=== PATIENT | female | born 1995 | race Caucasian/White ===

== ENCOUNTER 2016-11-04 12:03 | Emergency (ER) | payer BC, OTHER ==
[~2016-11-04] VITALS: Ht 162.6 cm; Wt 55.7 kg
[~2016-11-04 12:03] MED LIST: ESCI1TAB6 PO; LEVO1IUD PV; LORA-741 PO; TOPI1CAP3 PO
[2016-11-04 12:05] VITALS: Ht 162.6 cm; Wt 55.7 kg
[2016-11-04 13:09] LABS: HEMATOCRIT 40.4 % (37-47); MEAN CELL VOLUME 89.8 fL (80-100); MEAN CORPUSCULAR HEMOGLOBIN 30.7 pg (25-34); MEAN CORPUSCULAR HGB CONC 34.2 g/dl (32-36); MEAN PLATELET VOLUME 10.7 fL (7.4-10.4); PLATELET COUNT 213 K/uL (130-400); WHITE BLOOD COUNT 5.16 K/uL (4.8-10.8)
[2016-11-04 13:12] LABS: URINE APPEARANCE CLOUDY (CLEAR); URINE BILIRUBIN NEG (NEG); URINE COLOR YELLOW; URINE EPITHELIAL CELL AUTO >30 /lpf (0-5); URINE NITRITE NEG (NEG); URINE SPECIFIC GRAVITY 1.016 (1.000-1.030); UROBILINOGEN NEG (NEG); ZZUR CULT IF INDIC CLEAN CATCH YES
[2016-11-04 13:15] LABS: BUN/CREATININE RATIO 16.7 (10-20); CALCIUM 8.7 mg/dl (8.5-10.1); CREATININE 0.63 mg/dl (0.60-1.20); POTASSIUM 3.5 mmol/L (3.5-5.1)
[2016-11-04] MEDS ORDERED: SODIUM CHLORIDE 0.9% 1000ML 1,000 ML IV STA (13:16)
[2016-11-04] MEDS ORDERED: MoRPHine SULFATE 4 MG/ML 1 ML CARP\\VIAL IV STA (13:16)
[2016-11-04] MEDS ORDERED: ONDANSETRON INJ 2 MG/ML 2 ML VIAL IV STA (13:16)
[2016-11-04] MEDS ORDERED: KETOROLAC TROMETHAMINE 30 MG/ML VIAL IV STA (13:16)
[2016-11-04 13:18] LABS: ALB/GLOB RATIO 1.3 (0.9-2)
[2016-11-04 13:21] LABS: MANUAL MICROSCOPIC REQUIRED? NO; REVIEW REQ? NO
[2016-11-04] MEDS ORDERED: LEVOTAB6 PO (13:28)
[2016-11-04] MEDS ORDERED: ACET-749 PO (13:28)
[2016-11-04 13:37] LABS: BASO % 0.4 %; BASO ABS # 0.02 K/uL (0-0.2); COMPLETE YES; IG% 0.2 %; LYMPH % 31.4 %; LYMPH ABS # 1.62 K/uL (1.2-3.4); MONO % 6.4 %; NEUT % 60.6 %
[2016-11-04 13:44] LABS: PREG INTERNAL NEGATIVE QC NEG CLEAR BACKGROUND; PREG INTERNAL POSITIVE QC POS CONTROL LINE
--- NOTE | 2016-11-04 14:51 | DIAGNOSTIC IMAGING REPORT ---
ULTRASOUND OF THE PELVIS CLINICAL HISTORY: Pelvic pain. COMPARISON STUDY: Pelvic CT dated 05/21/2016. TECHNIQUE: Real-time, grayscale, and color flow sonography of the pelvis is performed both transabdominally and endovaginally. Images are reviewed in the transverse and longitudinal planes. FINDINGS: Uterus: The uterus is normal in size and echotexture, measuring 6.7 x 2.6 x 3.7 cm. Endometrium: The endometrium is normal in appearance, and the endometrial stripe is normal in thickness measuring up to 0.3 cm. Ovaries: The ovaries are normal in size and morphology. The right ovary measures 2.7 x 1.7 x 2.1 cm and the left ovary measures 2.6 x 1.5 x 2.0 cm. Normal Doppler waveforms are shown within both ovaries. Pelvis: There is trace free fluid in the cul-de-sac. No concerning adnexal lesion is seen. IMPRESSION: 1. No acute sonographic abnormalities identified in the pelvis. 2. There is trace and likely physiologic free fluid in the cul-de-sac. Electronically signed by: Cameron Madrigal M.D. 11/04/2016 2:50 PM Dictated Date/Time: 11/04/2016 2:49 PM
[2016-11-04] MEDS ORDERED: HYDR-5688 PO (15:05)
[2016-11-04] MEDS ORDERED: ONDA4TAB10 SL (15:07)
--- NOTE | 2016-11-04 15:07 | EMERGENCY ROOM VISIT NOTE ---
History First contact with patient: 13:01 Chief Complaint: ABDOMINAL PAIN Stated Complaint: SEVERE LWR STOMACH PAIN Nursing Triage Summary: pt has bilateral side abd pain lower quads for past 4 days nausea denies v/d pt has hx of ovarian cysts, reports "feels like that" pt reports pain is worse with movement History of Present Illness Patient is a 21-year-old white female who presents to emergency department for evaluation of bilateral lower pelvic pain 4 days. She reports a dull, aching, cramping pain that occasionally becomes sharp and stabbing. She has a history of ovarian cysts, and states that this feels slightly similar. She called her SENIOR BUSINESS DEVELOPMENT MANAGER who called her in a prescription for Tylenol #3. She has been taking this for the last 2 days with minimal relief. She also tried regular Tylenol and heat. She states that her prior ovarian cyst last summer was right-sided. She presently rates her discomfort a 7/10. She is nauseous but has not vomited. She denies any diarrhea or urinary symptoms. She is sexually active. She denies any abnormal vaginal bleeding or vaginal discharge. She previous had an IUD which was removed about 4 months ago. She has been on continuous control since. She changed from generic to brand name about 3 weeks ago. She states the pain is primarily in the anterior part of her abdomen, she does not feel any radiating to her back or flanks or into her thighs or her groin. Review of Systems Review of systems as per HPI. All other systems reviewed were negative. 10 systems reviewed. Past Medical/Surgical History Medical Problems: (1) Back pain (2) Infectious Mononucleosis (3) Ovarian cyst (4) Pharyngitis (5) Postoperative pain (6) Pruritic erythematous rash (7) Pruritic erythematous rash (8) Right lower quadrant abdominal pain (9) Sore throat (10) Urinary tract infection (11) Vasovagal syncope Surgical Problems: (1) Hx of tonsillectomy (2) No significant past surgical history Electronic medical records are reviewed and summarized as above/below. See Problem List. Family History Diabetes mellitus FHx: cancer Hypertension Social History Smoking Status: Never Smoker Alcohol Use: none Marital Status: single Housing Status: lives with family Occupation Status: employed Current/Historical Medications Scheduled Escitalopram Oxalate (Lexapro), 5 MG PO DAILY Levonorgestrel-Ethinyl Estradi (Seasonique), 1 TAB PO DAILY Topiramate (Trokendi Xr), 100 MG PO DAILY Scheduled PRN Acetaminophen/Codeine (Tylenol W/Codeine #3), 1 TAB PO for Pain Hydrocodone/Acetaminophen 5MG/325MG ([place] 5MG/325MG), 1-2 TABLETS PO Q4 PRN for Pain Lorazepam (Ativan), 0.5 MG PO TID PRN for Anxiety Ondasetron Odt (Zofran Odt), 4 MG SL Q4 PRN for Nausea or Vomiting Allergies Coded Allergies: Sulfa Drugs (Verified Allergy, Unknown, hives, 11/04/16) Physical Exam Vital Signs Date Time Temp Pulse Resp B/P Pulse Ox O2 Delivery O2 Flow Rate FiO2 11/04/16 15:34 36.8 65 18 113/64 100 11/04/16 15:07 65 18 113/64 100 11/04/16 12:05 36.8 82 20 117/80 100 Room Air Physical Exam CONSTITUTIONAL: Patient is a well-appearing 21-year-old white female who is awake and alert and in no acute distress. Her mother is at the bedside. EYES: Pupils equal, round, reactive to light and accommodation. EOMs intact without nystagmus. Sclera are anicteric. ENT: Tympanic membranes intact, with normal landmarks. External canals are clear. Oral and nasopharynx are clear. Mucous membranes are moist, no lesions , tongue and gums appear normal. NECK: No bruits auscultated. Supple without lymphadenopathy. No thyromegaly. No meningeal signs. Full active range of motion without discomfort. CARDIOVASCULAR: Regular rate and rhythm, with normal S1 and S2, no murmur or gallop or rub is heard. No carotid bruits auscultated. No JVD. Peripheral pulses easily palpable. RESPIRATORY: Breath sounds equal and clear to auscultation without wheezes, rales, or rhonchi heard. Full and equal chest expansion without accessory muscle use or retractions. ABDOMEN: Bowel sounds are present. Abdomen is soft, nondistended, slightly tender to palpation in the left lower quadrant, without guarding, rebound or rigidity. She has no pain in the right lower quadrant over McBurney's point. No CVA tenderness. INTEGUMENTARY: No lesions or rash, normal skin turgor. LYMPH: No lymphadenopathy. Medical Decision & Procedures ER Provider Diagnostic Interpretation: ULTRASOUND OF THE PELVIS CLINICAL HISTORY: Pelvic pain. COMPARISON STUDY: Pelvic CT dated 05/21/2016. TECHNIQUE: Real-time, grayscale, and color flow sonography of the pelvis is performed both transabdominally and endovaginally. Images are reviewed in the transverse and longitudinal planes. FINDINGS: Uterus: The uterus is normal in size and echotexture, measuring 6.7 x 2.6 x 3.7 cm. Endometrium: The endometrium is normal in appearance, and the endometrial stripe is normal in thickness measuring up to 0.3 cm. Ovaries: The ovaries are normal in size and morphology. The right ovary measures 2.7 x 1.7 x 2.1 cm and the left ovary measures 2.6 x 1.5 x 2.0 cm. Normal Doppler waveforms are shown within both ovaries. Pelvis: There is trace free fluid in the cul-de-sac. No concerning adnexal lesion is seen. IMPRESSION: 1. No acute sonographic abnormalities identified in the pelvis. 2. There is trace and likely physiologic free fluid in the cul-de-sac. Laboratory Results 11/04/16 12:20 Red Blood Count 4.50, Mean Corpuscular Volume 89.8, Mean Corpuscular Hemoglobin 30.7, Mean Corpuscular Hemoglobin Concent 34.2, Mean Platelet Volume 10.7, Neutrophils (%) (Auto) 60.6, Lymphocytes (%) (Auto) 31.4, Monocytes (%) (Auto) 6.4, Eosinophils (%) (Auto) 1.0, Basophils (%) (Auto) 0.4, Neutrophils # (Auto) 3.13, Lymphocytes # (Auto) 1.62, Monocytes # (Auto) 0.33, Eosinophils # (Auto) 0.05, Basophils # (Auto) 0.02 11/04/16 12:20 Test 11/04/16 12:20 White Blood Count 5.16 K/uL (4.8-10.8) Red Blood Count 4.50 M/uL (4.2-5.4) Hemoglobin 13.8 g/dL (12.0-16.0) Hematocrit 40.4 % (37-47) Mean Corpuscular Volume 89.8 fL (80-100) Mean Corpuscular Hemoglobin 30.7 pg (25-34) Mean Corpuscular Hemoglobin Concent 34.2 g/dl (32-36) Platelet Count 213 K/uL (130-400) Mean Platelet Volume 10.7 fL (7.4-10.4) Neutrophils (%) (Auto) 60.6 % Lymphocytes (%) (Auto) 31.4 % Monocytes (%) (Auto) 6.4 % Eosinophils (%) (Auto) 1.0 % Basophils (%) (Auto) 0.4 % Neutrophils # (Auto) 3.13 K/uL (1.4-6.5) Lymphocytes # (Auto) 1.62 K/uL (1.2-3.4) Monocytes # (Auto) 0.33 K/uL (0.11-0.59) Eosinophils # (Auto) 0.05 K/uL (0-0.5) Basophils # (Auto) 0.02 K/uL (0-0.2) RDW Standard Deviation 42.8 fL (36.4-46.3) RDW Coefficient of Variation 13.1 % (11.5-14.5) Immature Granulocyte % (Auto) 0.2 % Immature Granulocyte # (Auto) 0.01 K/uL (0.00-0.02) Urine Color YELLOW Urine Appearance CLOUDY (CLEAR) Urine pH 7.0 (4.5-7.5) Urine Specific [place] 1.016 (1.000-1.030) Urine Protein NEG (NEG) Urine Glucose (UA) NEG (NEG) Urine Ketones NEG (NEG) Urine Occult Blood NEG (NEG) Urine Nitrite NEG (NEG) Urine Bilirubin NEG (NEG) Urine Urobilinogen NEG (NEG) Urine Leukocyte Esterase TRACE (NEG) Urine WBC (Auto) 1-5 /hpf (0-5) Urine RBC (Auto) 0-4 /hpf (0-4) Urine Hyaline Casts (Auto) 1-5 /lpf (0-5) Urine Epithelial Cells (Auto) >30 /lpf (0-5) Urine Bacteria (Auto) 1+ (NEG) Urine Test NEG (NEG) Anion Gap 9.0 mmol/L (3-11) Est Creatinine Clear Calc Drug Dose 121.0 ml/min Estimated GFR () 147.6 Estimated GFR (Non- 127.3 BUN/Creatinine Ratio 16.7 (10-20) Calcium Level 8.7 mg/dl (8.5-10.1) Total Bilirubin 0.5 mg/dl (0.2-1) Aspartate Amino Transf (AST/SGOT) 13 U/L (15-37) Alanine Aminotransferase (ALT/SGPT) 15 U/L (12-78) Alkaline Phosphatase 48 U/L (45-117) Total Protein 7.6 gm/dl (6.4-8.2) Albumin 4.3 gm/dl (3.4-5.0) Globulin 3.3 gm/dl (2.5-4.0) Albumin/Globulin Ratio 1.3 (0.9-2) Lipase 107 U/L (73-393) Medications Administered Medications (Trade) Dose Ordered Sig/Leticia Route Start Time Stop Time Status Last Admin Dose Admin Sodium Chloride (Nss 1000ml) 1,000 ml @ 999 mls/hr Q1H1M STAT IV 11/04/16 13:16 11/04/16 14:16 DC 11/04/16 13:33 999 MLS/HR Morphine Sulfate (MoRPHine SULFATE INJ) 4 mg NOW STAT IV 11/04/16 13:16 11/04/16 13:18 DC 11/04/16 13:32 4 MG Ondansetron HCl (Zofran Inj) 4 mg NOW STAT IV 11/04/16 13:16 11/04/16 13:18 DC 11/04/16 13:33 4 MG Ketorolac Tromethamine (Toradol Inj) 30 mg NOW STAT IV 11/04/16 13:16 11/04/16 13:18 DC 11/04/16 13:33 30 MG ED Course The patient was seen and examined as above. Her old records are reviewed. IV access was obtained and she was hydrated with normal saline solution. She was medicated with morphine, Toradol and Zofran IV for pain. CBC, CMP, a urinalysis and urine test were performed. Pelvic ultrasound was obtained. Laboratory studies did not demonstrate a leukocytosis. She is not anemic. Electrolytes and liver functions are normal. Lipase is not elevated. Urinalysis shows trace leuk esterase, 1+ bacteria and greater than 30 epithelial cells indicating contamination. Urine test was negative. Pelvic ultrasound was essentially unremarkable. Endometrial lining measured normal in thickness at 0.3 cm. Ovaries were normal in size and morphology. Doppler waveforms were demonstrated bilaterally. Trace free fluid in the cul-de -sac was noted. All laboratory and diagnostic imaging studies were reviewed with the patient and her mother at length. She has been experiencing pelvic pain for some time and has been followed by gynecology. At her last oncology visit they entertained the idea of endometriosis, however given her young age they did not want to pursue any surgical intervention. She has been recently switched to a new oral contraceptive. I did offer a pelvic exam in the emergency department, patient reports that she last had one in July and is scheduled for her annual exam in December. She declined pelvic exam here in the ER today. Differential diagnoses entertained included ovarian cyst, ovarian torsion, , ectopic , PID, tubo-ovarian abscess, UTI, pyelonephritis, renal colic, constipation, bowel obstruction, diverticulitis, among others. The patient reported good relief of her pain with the IV medications and rated her discomfort a 6/10 at discharge. She was given a prescription for [place] and Zofran that she can use as needed for pain. She was discharged to continue to take ibuprofen as well. She was advised to follow-up with gynecology. She reports that she has her annual exam and Pap smear scheduled for December but she was advised to call sooner for her acute symptoms. Medical Decision See ED Course. Impression Primary Impression: Pelvic pain Departure Information Prescriptions Ondasetron Odt (ZOFRAN ODT) 4 Mg Tab 4 MG SL Q4 Y for Nausea or Vomiting, #20 TAB Prov: Meghann Nazario PA 11/04/16 Hydrocodone/Acetaminophen 5MG/325MG ([place] 5MG/325MG) Tab 1-2 TABLETS PO Q4 Y for Pain, #20 TAB For Initial Treatment Prov: Meghann Nazario PA 11/04/16 Referrals Mayank Prater PA-C (PCP) Patient Instructions My [facility] Additional Instructions DO NOT drive, drink alcohol, operate machinery, or perform dangerous activities today. You were given medications in the ER that can affect your ability to safely function or operate a vehicle. Hydrocodone/Acetaminophen ([place]) 5/325 mg: Take 1-2 pills every four hours for breakthrough pain. Avoid alcohol, operating machinery or dangerous equipment, working on ladders or roofs, DRIVING, or situations where being under the influence may be dangerous. It is recommended to use an [id number] stool softener such as Colace, 100mg twice daily while taking this medication to avoid constipation. Ibuprofen(Motrin, Advil) may be used for fever or pain. Use 600mg every six hours as needed. Take with food. Avoid using more than 2400mg in a 24 hour period. Do not use 2400mg per day for more than three consecutive days without physician direction. Prolonged inappropriate use can lead to stomach upset or ulcers. This is available over the counter and typically comes in 200mg tablets. (AND/OR) Acetaminophen(Tylenol) may be used for fever or pain. Use 1000mg every eight hours as needed. Avoid using more than 3000mg in a 24 hour period. This is available over the counter. Zofran(odansetron) tablets 4mg: Take one and allow it to dissolve in your mouth every four hours as needed for nausea or vomiting. Rest and drink plenty of fluids as tolerated. Slow sips of water or sports drinks are recommended instead of large amounts all at once. Continue current medications. Once your stomach is settled start with a clear liquid diet (jello, soup broth, etc.) and then advance as tolerated. You should avoid full, heavy meals for about 24 hrs from the time your symptoms resolved. Return to the ER immediately for worsening or persistent abdominal pain, vomiting, fevers, chest pains, difficulty breathing, black or bloody stools, worsening of your condition, or as needed. Follow up with your [employer]ER by phone today to notify them of your ED visit and to schedule a follow-up appointment for a recheck of your current condition.
[2016-11-04 15:34] VITALS: BP 113/64; PULSE 65; TEMP 36.8; O2SAT 100
== END 2016-11-04 15:30 | disposition home or self-care (01) ==
LOC: C.EDC 12:08
DX: R10.2 Pelvic and perineal pain (principal); R11.0 Nausea; Z79.3 Long term (current) use of hormonal contraceptives; Z87.42 Personal history of other diseases of the female genital tract; Z83.3 Family history of diabetes mellitus; Z82.49 Family history of ischemic heart disease and other diseases of the circulatory system

== ENCOUNTER → 2016-12-24 | Outpatient (CLI) | payer BC, OTHER ==
[~2016-12-24] MED LIST changes: +ACET-749 PO; +ATV5X PO; +HYDR-5688 PO; -LEVO1IUD PV; +LEVOTAB6 PO; +LXP10 PO; +ONDA4TAB10 SL; +OXYC-57 PO; +TAMS0.4C38 PO
== END | disposition home or self-care (01) ==
LOC: C.PAPS 15:27
PROVIDERS: ATTEND Physician Assistant
DX: Z01.419 Encounter for gynecological examination (general) (routine) without abnormal findings (principal)

== ENCOUNTER 2017-03-14 03:49 | Emergency (ER) | payer BC, OTHER ==
[~2017-03-14] VITALS: Ht 162.6 cm; Wt 58.0 kg
[~2017-03-14 03:49] MED LIST changes: -ATV5X PO; -LXP10 PO; -OXYC-57 PO; -TAMS0.4C38 PO
[2017-03-14 03:57] VITALS: TEMP 36.4; Ht 162.6 cm; Wt 58.0 kg
[2017-03-14 04:21] LABS: HEMATOCRIT 38.6 % (37-47); MEAN CELL VOLUME 89.4 fL (80-100); MEAN CORPUSCULAR HEMOGLOBIN 29.9 pg (25-34); MEAN CORPUSCULAR HGB CONC 33.4 g/dl (32-36); MEAN PLATELET VOLUME 9.8 fL (7.4-10.4); PLATELET COUNT 232 K/uL (130-400); RED BLOOD COUNT 4.32 M/uL (4.2-5.4); WHITE BLOOD COUNT 14.71 K/uL (4.8-10.8)
[2017-03-14 04:24] LABS: URINE APPEARANCE TURBID (CLEAR); URINE BILIRUBIN NEG (NEG); URINE COLOR YELLOW; URINE EPITHELIAL CELL AUTO >30 /lpf (0-5); URINE NITRITE NEG (NEG); UROBILINOGEN NEG (NEG); ZZUR CULT IF INDIC CLEAN CATCH NO
[2017-03-14] MEDS ORDERED: OPTIRAY 320 IV PRN (04:30)
[2017-03-14 04:36] LABS: MANUAL MICROSCOPIC REQUIRED? NO; REVIEW REQ? YES; SULFASALICYLIC ACID NEG (NEG)
[2017-03-14 04:41] LABS: BUN/CREATININE RATIO 18.8 (10-20); CALCIUM 8.3 mg/dl (8.5-10.1); CREATININE 0.83 mg/dl (0.60-1.20)
[2017-03-14] MEDS ORDERED: TOPI1CAP3 PO (04:41)
[2017-03-14] MEDS ORDERED: ATV5X PO (04:41)
[2017-03-14] MEDS ORDERED: LXP10 PO (04:41)
[2017-03-14 04:43] LABS: ALB/GLOB RATIO 1.4 (0.9-2); BASO % 0.1 %; BASO ABS # 0.02 K/uL (0-0.2); COMPLETE YES; EOS % 0.6 %; IG% 0.3 %; LYMPH % 13.7 %; LYMPH ABS # 2.02 K/uL (1.2-3.4); MONO % 5.1 %; NEUT % 80.2 %
[2017-03-14] MEDS ORDERED: ONDANSETRON INJ 2 MG/ML 2 ML VIAL IV STA (05:09)
[2017-03-14] MEDS ORDERED: MoRPHine SULFATE 4 MG/ML 1 ML CARP\\VIAL IV STA ×2 (05:09→06:28)
[2017-03-14] MEDS ORDERED: SODIUM CHLORIDE 0.9% 1000ML 1,000 ML IV STA (05:09)
--- NOTE | 2017-03-14 05:11 | EMERGENCY ROOM VISIT NOTE ---
History First contact with patient: 04:02 Chief Complaint: ABDOMINAL PAIN Stated Complaint: LOWER ABD PAIN Nursing Triage Summary: pt c/o lower abd pain and back pain with n/v times one that started tonight History of Present Illness The patient is a 21 year old female who presents to the Emergency Room with complaints of abdominal pain and low back pain. The patient states that she woke up in the middle of the night approximately 5 hours ago with severe lower abdominal and low back pain. She has a history of endometriosis but states her symptoms have not been this severe in the past. She reports she had a laparoscopy/hysteroscopy 2 weeks ago by her [employer] in [place]. She reports she has had chills, but no fever. She has been nauseous, but has not vomited. She took a Percocet for pain without relief. She reports she has been spotting , but denies any abnormal vaginal discharge. Her last menstrual period was approximately 3 weeks ago. She rates her discomfort a 10/10. Review of Systems A complete 10 point review of systems was reviewed with the patient with pertinent positives and negatives as per history of present illness. All else were negative. Past Medical/Surgical History Medical Problems: (1) Back pain (2) Infectious Mononucleosis (3) Ovarian cyst (4) Pharyngitis (5) Postoperative pain (6) Pruritic erythematous rash (7) Pruritic erythematous rash (8) Right lower quadrant abdominal pain (9) Sore throat (10) Urinary tract infection (11) Vasovagal syncope Surgical Problems: (1) Hx of tonsillectomy (2) No significant past surgical history Family History Diabetes mellitus FHx: cancer Hypertension Social History Smoking Status: Never Smoker Alcohol Use: none Marital Status: single Housing Status: lives with family Occupation Status: employed Current/Historical Medications Scheduled Escitalopram Oxalate (Escitalopram Oxalate), 10 MG PO DAILY Levonorgestrel-Ethinyl Estradi (Seasonique), 1 TAB PO DAILY Topiramate (Trokendi Xr), 100 MG PO DAILY Scheduled PRN Lorazepam (Lorazepam), 0.25 MG PO BID PRN for Anxiety Allergies Coded Allergies: Sulfa Drugs (Verified Allergy, Unknown, hives, 03/14/17) Physical Exam Vital Signs Date Time Temp Pulse Resp B/P (MAP) Pulse Ox O2 Delivery O2 Flow Rate FiO2 03/14/17 05:50 90 18 123/83 99 Room Air 03/14/17 03:57 36.4 80 18 114/71 100 Room Air Physical Exam VITALS: Vitals are noted on the nurse's note and reviewed by myself. Vital signs stable. GENERAL: This is a 21-year-old female, in no acute distress, nondiaphoretic, well-developed well-nourished. SKIN: Capillary reflex less than 2 seconds. HEENT: PERRLA. EOMI. Mucous membranes moist. HEART: Regular rate and rhythm without murmurs gallops or rubs. LUNGS: Clear to auscultation bilaterally without wheezes, rales or rhonchi. ABDOMEN: Positive bowel sounds x 4. Soft, moderate tenderness across the lower abdomen. No guarding or rebound tenderness. NEURO: Patient was alert and oriented to person place and time. Medical Decision & Procedures ER Provider Diagnostic Interpretation: CT ABDOMEN & PELVIS: There is a 3 mm calculus at the right UVJ, which causes mild right hydroureteronephrosis and delayed right nephrogram. Additional findings: The visualized lower thorax is unremarkable. The liver, gallbladder, spleen, pancreas, and adrenal glands are unremarkable. Left kidney is unremarkable. The appendix is not completely visualized. The stomach, small bowel, colon are unremarkable. The uterus and adnexa are unremarkable. Small free fluid in the pelvis. No acute osseous abnormality. Radiologist: Nagi Funez MD Laboratory Results 03/14/17 04:10 Red Blood Count 4.32, Mean Corpuscular Volume 89.4, Mean Corpuscular Hemoglobin 29.9, Mean Corpuscular Hemoglobin Concent 33.4, Mean Platelet Volume 9.8, Neutrophils (%) (Auto) 80.2, Lymphocytes (%) (Auto) 13.7, Monocytes (%) (Auto) 5.1, Eosinophils (%) (Auto) 0.6, Basophils (%) (Auto) 0.1, Neutrophils # (Auto) 11.78, Lymphocytes # (Auto) 2.02, Monocytes # (Auto) 0.75, Eosinophils # (Auto) 0.09, Basophils # (Auto) 0.02 03/14/17 04:10 Test 03/14/17 04:10 White Blood Count 14.71 K/uL (4.8-10.8) Red Blood Count 4.32 M/uL (4.2-5.4) Hemoglobin 12.9 g/dL (12.0-16.0) Hematocrit 38.6 % (37-47) Mean Corpuscular Volume 89.4 fL (80-100) Mean Corpuscular Hemoglobin 29.9 pg (25-34) Mean Corpuscular Hemoglobin Concent 33.4 g/dl (32-36) Platelet Count 232 K/uL (130-400) Mean Platelet Volume 9.8 fL (7.4-10.4) Neutrophils (%) (Auto) 80.2 % Lymphocytes (%) (Auto) 13.7 % Monocytes (%) (Auto) 5.1 % Eosinophils (%) (Auto) 0.6 % Basophils (%) (Auto) 0.1 % Neutrophils # (Auto) 11.78 K/uL (1.4-6.5) Lymphocytes # (Auto) 2.02 K/uL (1.2-3.4) Monocytes # (Auto) 0.75 K/uL (0.11-0.59) Eosinophils # (Auto) 0.09 K/uL (0-0.5) Basophils # (Auto) 0.02 K/uL (0-0.2) RDW Standard Deviation 39.6 fL (36.4-46.3) RDW Coefficient of Variation 12.2 % (11.5-14.5) Immature Granulocyte % (Auto) 0.3 % Immature Granulocyte # (Auto) 0.05 K/uL (0.00-0.02) Urine Color YELLOW Urine Appearance TURBID (CLEAR) Urine pH 8.0 (4.5-7.5) Urine Specific Healy 1.020 (1.000-1.030) Urine Protein NEG (NEG) Urine Glucose (UA) NEG (NEG) Urine Ketones 1+ (NEG) Urine Occult Blood 3+ (NEG) Urine Nitrite NEG (NEG) Urine Bilirubin NEG (NEG) Urine Urobilinogen NEG (NEG) Urine Leukocyte Esterase TRACE (NEG) Urine WBC (Auto) 5-10 /hpf (0-5) Urine RBC (Auto) >30 /hpf (0-4) Urine Hyaline Casts (Auto) 0 /lpf (0-5) Urine Epithelial Cells (Auto) >30 /lpf (0-5) Urine Bacteria (Auto) NEG (NEG) Urine Renal Epithelial Cells /lpf (0-5) Urine Crystals AMORPHOUS SEDIMENT (NONE Urine Pathogenic Casts /lpf (0) Urine Test NEG (NEG) Anion Gap 9.0 mmol/L (3-11) Est Creatinine Clear Calc Drug Dose 91.9 ml/min Estimated GFR () 116.0 Estimated GFR (Non- 100.1 BUN/Creatinine Ratio 18.8 (10-20) Calcium Level 8.3 mg/dl (8.5-10.1) Total Bilirubin 0.4 mg/dl (0.2-1) Aspartate Amino Transf (AST/SGOT) 12 U/L (15-37) Alanine Aminotransferase (ALT/SGPT) 22 U/L (12-78) Alkaline Phosphatase 52 U/L (45-117) Total Protein 7.1 gm/dl (6.4-8.2) Albumin 4.1 gm/dl (3.4-5.0) Globulin 3.0 gm/dl (2.5-4.0) Albumin/Globulin Ratio 1.4 (0.9-2) Lipase 146 U/L (73-393) Medications Administered Medications (Trade) Dose Ordered Sig/Leticia Route Start Time Stop Time Status Last Admin Dose Admin Sodium Chloride 1,000 ml @ 999 mls/hr Q1H1M STAT IV 03/14/17 05:09 03/14/17 06:09 DC 03/14/17 05:37 999 MLS/HR Morphine Sulfate (MoRPHine SULFATE INJ) 4 mg NOW STAT IV 03/14/17 05:09 03/14/17 05:10 DC 03/14/17 05:36 4 MG Ondansetron HCl (Zofran Inj) 4 mg NOW STAT IV 03/14/17 05:09 03/14/17 05:10 DC 03/14/17 05:36 4 MG Morphine Sulfate (MoRPHine SULFATE INJ) 4 mg NOW STAT IV 03/14/17 06:28 03/14/17 06:30 DC 03/14/17 06:38 4 MG Ketorolac Tromethamine (Toradol Inj) 30 mg STK-MED ONCE .ROUTE 03/14/17 06:34 03/14/17 06:35 DC 03/14/17 06:37 15 MG ED Course The patient was evaluated as above. Labs were drawn and IV access was obtained. Patient was medicated with a 1 L normal saline bolus, 4 mg Zofran IV and [address] of the abdomen and pelvis was performed and read by radiology as above. Patient was reevaluated and states her pain is starting to return. She was given an additional 4 mg morphine and 15 mg Toradol IV. Discharge instructions were reviewed with the patient. The patient verbalized understanding of my assessment and treatment plan and was discharged home in good condition. Medical Decision Differential diagnosis includes postoperative infection, urinary tract infection , pyelonephritis, kidney stone, ovarian cyst, ovarian torsion, ectopic , pancreatitis, cholecystitis, appendicitis, among others. The patient is a 21-year-old female who presents today complaining of acute onset of abdominal pain with one episode of vomiting. Labs revealed a leukocytosis, likely secondary to vomiting. No concerning anemia or electrolyte abnormalities. Kidney functions are within normal limits. Urinalysis was not suggestive of infection, but did reveal hematuria. Urine was negative. CT scan of the abdomen and pelvis did show a right ureteral calculus. The patient's pain was under control in the emergency department. She is comfortable with discharge home. There is no evidence of infection. She is afebrile. She was given a urine strainer. She was instructed to follow-up with her primary care provider this week for a recheck or return here if she is not able to control the pain or if she has any new/ concerning symptoms. Based on the patient's presentation and work up, I feel the patient is stable for outpatient treatment. The patient was educated to return to the emergency department for any worsening of their current condition or new/concerning symptoms. She will follow up with her primary care provider. Medication reconciliation: I attest that I have personally reviewed the patient 's current medication list. Blood pressure screening: Patient was found to have normal blood pressure on screening and does not require follow-up. Impression Primary Impression: Ureteral calculus, right Departure Information Dispostion Home / Self-Care Condition GOOD Prescriptions Ondasetron Odt (ZOFRAN ODT) 4 Mg Tab 4 MG SL Q6H for Nausea, #15 TAB Prov: Zaria Resendiz PA-C 03/14/17 Tamsulosin Hcl (FLOMAX) 0.4 Mg Cap 0.4 MG PO DAILY for 10 Days, #10 CAP Prov: Zaria Resendiz PA-C 03/14/17 Oxycodone/Acetaminophen 5MG/325MG (PERCOCET 5MG/325MG) Tab 1-2 TABS PO Q4H Y for Pain, #25 TAB For Initial Treatment Prov: Zaria Resendiz .NOEL 03/14/17 Referrals Mayank Prater PA-C (PCP) Patient Instructions Kidney Stones - [facility], My [facility] Additional Instructions You have been treated in the Emergency Department today for a Kidney Stone ( Nephrolithiasis). You have received pain medicine in the emergency department which impairs your ability to operate a vehicle. It is illegal for you to drive after receiving these medicines. You have been prescribed Percocet to be used for pain control. This is a narcotic medication. You cannot drive or consume alcohol while on this medicine. This medicine should only be used for pain that cannot be controlled with [id number] pain medicines. You have been prescribed and Zofran to be used for any nausea or vomiting. Take as prescribed. You have been prescribed Flomax 0.4 mg to be taken ONCE daily. This medicine has been prescribed as it can help relax the smooth muscles of the urinary tract increasing transit time of the kidney stone. For pain control, you can use the following [id number] medicines (if >12 yo): - Regular strength (325mg/tab) Tylenol (acetaminophen) 2 tabs every 4-6 hours as needed. Do not exceed 12 tablets in a 24 hour period. Avoid taking more than 4 grams (4000 mg) of Tylenol per day. This includes any other sources of acetaminophen you may take on a regular basis. - Regular strength (200 mg/tab) Advil (ibuprofen) 1-2 tabs every 4-6 hours as needed. Do not exceed a dose of 3200 mg per day. You have been provided a strainer and specimen collection cup. You should strain your urine to collect any passed stones. Your stones can be placed into the specimen cup and taken to your Urologist for further evaluation. You have been provided the contact information for the on-call Urologist. You should contact the Urologist's office tomorrow to establish a follow-up appointment from today's Emergency Department visit. Return to the Emergency Department if your symptoms persist despite the treatment plan outlined above or if you develop the following symptoms: intractable pain, fever, chills, or large amounts of blood in your urine.
[2017-03-14] MEDS ORDERED: KETOROLAC TROMETHAMINE 15 MG/ML VIAL IV STA (06:28)
[2017-03-14] MEDS ORDERED: KETOROLAC TROMETHAMINE 30 MG/ML VIAL ONE (06:34)
[2017-03-14] MEDS ORDERED: TAMS0.4C38 PO (07:18)
[2017-03-14] MEDS ORDERED: ONDA4TAB10 SL (07:18)
[2017-03-14] MEDS ORDERED: OXYC-57 PO (07:18)
[2017-03-14 07:20] VITALS: BP 113/75; PULSE 80; O2SAT 95
--- NOTE | 2017-03-14 08:07 | DIAGNOSTIC IMAGING REPORT ---
ABDOMEN AND PELVIS CT WITH IV CONTRAST CT DOSE: 281.46 mGy.cm HISTORY: lower abdominal pain, recent laparoscopy TECHNIQUE: Multiaxial CT images of the abdomen and pelvis were performed following the use of intravenous contrast. COMPARISON STUDY: Abdomen and pelvis CT 05/21/2016. FINDINGS: The lung bases are clear. The liver, spleen, adrenal glands, pancreas, gallbladder, and left kidney are unremarkable. There is a delayed right nephrogram with mild right hydroureteronephrosis secondary to a 3 mm obstructing stone within the distal right ureter best seen on image 72. Bladder is not well-distended. Trace pelvic fluid. No bowel wall thickening or obstruction. The colon is decompressed which limits evaluation. No retroperitoneal lymphadenopathy. IMPRESSION: A 3 mm stone within the distal right ureter resulting in mild right hydroureteronephrosis. Electronically signed by: Leroy Stoddard M.D. 03/14/2017 8:05 AM Dictated Date/Time: 03/14/2017 8:02 AM
== END 2017-03-14 07:24 | disposition home or self-care (01) ==
LOC: C.EDB 03:50
DX: N13.0 Hydronephrosis with ureteropelvic junction obstruction (principal); N80.9 Endometriosis, unspecified; Z87.891 Personal history of nicotine dependence; Z83.3 Family history of diabetes mellitus; Z80.9 Family history of malignant neoplasm, unspecified; Z82.49 Family history of ischemic heart disease and other diseases of the circulatory system; Z79.3 Long term (current) use of hormonal contraceptives; Z79.899 Other long term (current) drug therapy

== ENCOUNTER → 2017-08-17 | Outpatient (CLI) | payer BC ==
[~2017-08-17] MED LIST changes: -ACET-749 PO; +ATV5X PO; -ESCI1TAB6 PO; +GADAVIST IV PRN; -HYDR-5688 PO; -LORA-741 PO; +LXP10 PO; +OXYC-57 PO
--- NOTE | 2017-08-17 10:34 | DIAGNOSTIC IMAGING REPORT ---
MRI OF THE BRAIN WITHOUT AND WITH IV CONTRAST CLINICAL HISTORY: Intractable headache COMPARISON STUDY: 02/22/2015 TECHNIQUE: MRI of the brain was performed from the vertex to the skull base utilizing various T1 and T2 weighted sequences. Following the IV administration of 5 mL of Gadavist contrast, additional enhanced images were obtained. FINDINGS: Sagittal T1, axial diffusion, proton density and T2 weighted axial, coronal FLAIR, and pre and post axial T1-weighted images were acquired. These were supplemented with post gadolinium coronal T1 weighted images. No intra or extra-axial mass lesions are visualized. Axial diffusion-weighted images reveal no evidence of acute or subacute infarction. There is no evidence of ventricular dilatation. Proton density T2-weighted and FLAIR images reveal stable foci of increased FLAIR signal within the frontal lobes. These remain nonspecific, but can be seen in patients with chronic migraines. There are no abnormal flow voids. There is no evidence of pathologic enhancement. There is a left maxillary sinus retention cyst. IMPRESSION: 1. No significant change from the prior 2014 study 2. No evidence of acute or subacute infarction 3. No evidence of intracranial mass 4. Stable small foci of increased FLAIR signal within the frontal lobes Electronically signed by: Shay Kennedy M.D. 08/17/2017 10:33 AM Dictated Date/Time: 08/17/2017 10:30 AM
== END | disposition home or self-care (01) ==
LOC: C.MRIBC 09:33
PROVIDERS: ATTEND Physician Assistant
DX: R51 Headache (principal)

== ENCOUNTER 2017-11-07 09:28 | Emergency (ER) | payer BC ==
[~2017-11-07] VITALS: Ht 162.6 cm; Wt 50.2 kg
[~2017-11-07 09:28] MED LIST changes: -GADAVIST IV PRN; -ONDA4TAB10 SL; -OXYC-57 PO
[2017-11-07 09:34] VITALS: TEMP 36.7; Ht 162.6 cm; Wt 50.2 kg
[2017-11-07] MEDS ORDERED: TOPI1CAP PO (09:58)
[2017-11-07] MEDS ORDERED: DPPRI400 IM (09:58)
[2017-11-07] MEDS ORDERED: SODIUM CHLORIDE 0.9% 1000ML 1,000 ML IV STA (10:37)
[2017-11-07] MEDS ORDERED: KETOROLAC TROMETHAMINE 30 MG/ML VIAL IV STA (10:37)
[2017-11-07] MEDS ORDERED: ONDANSETRON INJ 2 MG/ML 2 ML VIAL IV STA (10:40)
--- NOTE | 2017-11-07 10:48 | EMERGENCY ROOM VISIT NOTE ---
History Report prepared by Una: Randell Alberto Under the Supervision of: Dr. Prisca Martinez M.D. First contact with patient: 10:36 Chief Complaint: FLANK PAIN Stated Complaint: FLANK PAIN, GONZALEZ WHEN PEE, VOMIT,ABD PAIN History of Present Illness The patient is a 22 year old female who presents to the Emergency Room with complaints of constant, left flank pain beginning four days ago. She notes her discomfort radiates to her abdomen. The patient states she was evaluated 2 days ago and was told she had either a kidney infection or UTI. She reports she had a CT scan and urinalysis performed, and they were both negative. The patient notes she was discharged with Norah and Jeremias. She states she has a history of kidney stones, and they were difficult to diagnose. The patient reports she is extremely nauseous, and vomited yesterday. She states she has not vomited today. She notes her last menstrual period was two weeks ago, and she denies the chance of being . Source of History: patient Onset: four days ago Position: other (left flank) Timing: constant Associated Symptoms: + nausea, + vomiting, + abdominal pain Note: Denies: the chance of being Review of Systems See HPI for pertinent positives & negatives. A total of 10 systems reviewed and were otherwise negative. Past Medical & Surgical Medical Problems: (1) Back pain (2) Infectious Mononucleosis (3) Ovarian cyst (4) Pharyngitis (5) Postoperative pain (6) Pruritic erythematous rash (7) Pruritic erythematous rash (8) Right lower quadrant abdominal pain (9) Sore throat (10) Urinary tract infection (11) Vasovagal syncope Surgical Problems: (1) Hx of tonsillectomy (2) No significant past surgical history Family History Diabetes mellitus FHx: cancer Hypertension Social History Smoking Status: Never Smoker Alcohol Use: none Marital Status: single Housing Status: lives with family Occupation Status: employed Current/Historical Medications Scheduled Escitalopram Oxalate (Escitalopram Oxalate), 10 MG PO DAILY Medroxyprogesterone Acetate (Depo-Provera), 1 ML IM Q3MO Tamsulosin Hcl (Flomax), 0.4 MG PO DAILY Topiramate (Trokendi Xr), 100 MG PO DAILY Topiramate (Trokendi Xr), 200 MG PO DAILY Scheduled PRN Hydrocodone/Acetaminophen 5MG/325MG ([place] 5MG/325MG), 1 TABLET PO Q6 PRN for Pain Lorazepam (Lorazepam), 0.25 MG PO BID PRN for Anxiety Allergies Coded Allergies: Sulfa Antibiotics (Verified Allergy, Intermediate, hives, 08/17/17) Physical Exam Vital Signs Date Time Temp Pulse Resp B/P (MAP) Pulse Ox O2 Delivery O2 Flow Rate FiO2 11/07/17 13:33 80 18 109/74 99 Room Air 11/07/17 11:09 70 18 107/78 100 Room Air 11/07/17 09:34 36.7 106 18 120/73 99 Room Air Physical Exam Vital signs reviewed. General: Well-appearing 22 year old female, in no significant distress. HEENT: No scleral icterus, PERRLA, neck supple. Atraumatic. Cardiovascular: Regular rate and rhythm, no extra sounds. Pulmonary: Clear to auscultation bilaterally, normal work of breathing. Abdomen: Soft, nondistended, positive bowel sounds. Tenderness to the LLQ. Mild left lower CVA tenderness to palpation. No rebounding. No guarding. Musculoskeletal: Atraumatic, no peripheral edema. Neurologic: Patient awake alert and oriented x 3 Skin: Warm, dry, no rash Medical Decision & Procedures ER Provider Diagnostic Interpretation: Radiology results as stated below per my review and radiologist interpretation: (RENAL)RETROPERITON COMP HISTORY: Flank pain L flank pain, kidney stone history, CT at OSH reportedly neg COMPARISON: None. FINDINGS: Right kidney: Maximum dimension 12.2 cm. No evidence for hydronephrosis. Normal corticomedullary differentiation and cortical thickness. Left kidney: Moderate left renal hydroureteronephrosis. Normal corticomedullary differentiation and cortical thickness. Bladder: No bladder wall thickening. The bilateral ureteral jets were identified. IMPRESSION: Moderate left renal hydroureteronephrosis. Right kidney is unremarkable. The above report was generated using voice recognition software. It may contain grammatical, syntax or spelling errors. Electronically signed by: Nicanor Hameed M.D. 11/07/2017 12:00 PM Dictated Date/Time: 11/07/2017 11:59 AM KUB CLINICAL HISTORY: L ureteral stone nephrocalcinosis COMPARISON STUDY: Renal ultrasound same date FINDINGS: Nonobstructive bowel pattern. 3 mm calcification left ureteral vesicle junction. Trace contrast within the renal collecting system. Mild left hydroureteronephrosis. IMPRESSION: 3 mm Obstructing calculus distal left ureter at the left ureteral vesicle junction. Trace contrast within the left renal collecting system and ureter consistent with mild left hydroureteronephrosis. The above report was generated using voice recognition software. It may contain grammatical, syntax or spelling errors. Electronically signed by: Nicanor Hameed M.D. 11/07/2017 12:41 PM Dictated Date/Time: 11/07/2017 12:39 PM Laboratory Results 11/07/17 11:00 Red Blood Count 4.50, Mean Corpuscular Volume 88.9, Mean Corpuscular Hemoglobin 30.7, Mean Corpuscular Hemoglobin Concent 34.5, Mean Platelet Volume 10.1, Neutrophils (%) (Auto) 76.0, Lymphocytes (%) (Auto) 14.3, Monocytes (%) (Auto) 9.1, Eosinophils (%) (Auto) 0.4, Basophils (%) (Auto) 0.1, Neutrophils # (Auto) 5.18, Lymphocytes # (Auto) 0.98, Monocytes # (Auto) 0.62, Eosinophils # (Auto) 0.03, Basophils # (Auto) 0.01 11/07/17 11:00 Test 11/07/17 09:50 11/07/17 11:00 Urine Color ORANGE Urine Appearance SLIGHTLY CLOUDY (CLEAR) Urine pH (4.5-7.5) Urine Specific [place] 1.029 (1.000-1.030) Urine Protein NEG (NEG) Urine Glucose (UA) (NEG) Urine Ketones (NEG) Urine Occult Blood (NEG) Urine Nitrite (NEG) Urine Bilirubin (NEG) Urine Urobilinogen (NEG) Urine Leukocyte Esterase (NEG) Urine RBC >30 /hpf (0-4) Urine WBC 5-10 /hpf (0-5) Urine Epithelial Cells >30 /lpf (0-5) Urine Bacteria 1+ (NEG) Urine Test NEG (NEG) White Blood Count 6.83 K/uL (4.8-10.8) Red Blood Count 4.50 M/uL (4.2-5.4) Hemoglobin 13.8 g/dL (12.0-16.0) Hematocrit 40.0 % (37-47) Mean Corpuscular Volume 88.9 fL (80-100) Mean Corpuscular Hemoglobin 30.7 pg (25-34) Mean Corpuscular Hemoglobin Concent 34.5 g/dl (32-36) Platelet Count 184 K/uL (130-400) Mean Platelet Volume 10.1 fL (7.4-10.4) Neutrophils (%) (Auto) 76.0 % Lymphocytes (%) (Auto) 14.3 % Monocytes (%) (Auto) 9.1 % Eosinophils (%) (Auto) 0.4 % Basophils (%) (Auto) 0.1 % Neutrophils # (Auto) 5.18 K/uL (1.4-6.5) Lymphocytes # (Auto) 0.98 K/uL (1.2-3.4) Monocytes # (Auto) 0.62 K/uL (0.11-0.59) Eosinophils # (Auto) 0.03 K/uL (0-0.5) Basophils # (Auto) 0.01 K/uL (0-0.2) RDW Standard Deviation 38.8 fL (36.4-46.3) RDW Coefficient of Variation 12.0 % (11.5-14.5) Immature Granulocyte % (Auto) 0.1 % Immature Granulocyte # (Auto) 0.01 K/uL (0.00-0.02) Anion Gap 14.0 mmol/L (3-11) Est Creatinine Clear Calc Drug Dose 63.6 ml/min Estimated GFR () 82.9 Estimated GFR (Non- 71.5 BUN/Creatinine Ratio 15.0 (10-20) Calcium Level 9.2 mg/dl (8.5-10.1) Total Bilirubin 0.7 mg/dl (0.2-1) Direct Bilirubin 0.2 mg/dl (0-0.2) Aspartate Amino Transf (AST/SGOT) 18 U/L (15-37) Alanine Aminotransferase (ALT/SGPT) 18 U/L (12-78) Alkaline Phosphatase 62 U/L (45-117) Total Protein 8.0 gm/dl (6.4-8.2) Albumin 4.8 gm/dl (3.4-5.0) Laboratory results per my review. Medications Administered Medications (Trade) Dose Ordered Sig/Leticia Route Start Time Stop Time Status Last Admin Dose Admin Sodium Chloride 1,000 ml @ 999 mls/hr Q1H1M STAT IV 2/11/18 10:37 11/07/17 11:37 DC 11/07/17 10:37 999 MLS/HR Ketorolac Tromethamine (Toradol Inj) 30 mg NOW STAT IV 11/07/17 10:37 11/07/17 10:40 DC 11/07/17 10:37 30 MG Ondansetron HCl (Zofran Inj) 4 mg NOW STAT IV 11/07/17 10:40 11/07/17 10:41 DC 11/07/17 10:40 4 MG Acetaminophen/ Hydrocodone Bitart ([place] 5/325 Tab) 1 tab NOW STAT PO 11/07/17 13:36 11/07/17 13:37 DC 11/07/17 13:36 1 TAB Acetaminophen/ Hydrocodone Bitart ([place] 5/325mg Home Pack) 1 homepack UD ONCE PO 11/07/17 13:45 11/07/17 13:46 DC 11/07/17 13:42 1 HOMEPACK ED Course 1037: Past medical records reviewed. The patient was evaluated in room A03. A complete history and physical examination was performed. Ordered Toradol Inj 30mg IV, Sodium Chloride 1000 ml @ 999 mls/hr IV 1040: Ordered Ondansetron HCl 4mg IV 1336: Ordered Hydrocodone Bitart/Acetaminophen 1tab PO 1340: Upon reevaluation, the patient appeared to have improvement of her symptoms. I discussed findings with the patient. She verbalized agreement of the treatment plan. The patient will be discharged home when she receives her homepack. 1345: Ordered Hydrocodone Bitart/Acetaminophen 1 homepack PO Medical Decision Differential diagnosis: Etiologies such as renal colic, appendicitis, diverticulitis, mesenteric ischemia, aortic pathology, infections, inflammatory bowel disease, PUD, biliary pathology, UTI, as well as others were entertained. This patient was evaluated and appeared to be in some discomfort. IV access was obtained and laboratory work was drawn. The patient was placed on the alarm security or surveillance monitor centimeter normal sinus rhythm. IV access was established and laboratory work was drawn. The patient was hydrated with normal saline solution given IV Toradol and Zofran for her discomfort. Given that the patient had a recent CT scan abdomen and pelvis at an outside facility and was told that there are "no stones"KUB was ordered as well as a renal ultrasound. These studies are concerning for a left ureteral calculus. Patient's UA is significant for blood but negative for infection. Her aunt is a nurse and will help establish with urology as an outpatient. Patient continued to have pain and was given [place] one tablet by mouth. She was given a home pack and a prescription. She will return to the ER for worsening of symptoms or any medical concerns. Medication Reconcilliation Current Medication List: was personally reviewed by me Blood Pressure Screening Patient's blood pressure: Normal blood pressure Blood pressure disposition: Did not require urgent referral Impression Primary Impression: Colic, ureteral Scribe Attestation The scribe's documentation has been prepared under my direction and personally reviewed by me in its entirety. I confirm that the note above accurately reflects all work, treatment, procedures, and medical decision making performed by me. Departure Information Dispostion Home / Self-Care Prescriptions Tamsulosin Hcl (FLOMAX) 0.4 Mg Cap 0.4 MG PO DAILY, #14 CAP Prov: Prisca Martinez M.D. 11/07/17 Hydrocodone/Acetaminophen 5MG/325MG ([place] 5MG/325MG) Tab 1 TABLET PO Q6 Y for Pain, #20 TAB Prov: Prisca Martinez M.D. 11/07/17 Referrals Mayank Prater PA-C (PCP) Linda Payne MD Forms HOME CARE DOCUMENTATION FORM, IMPORTANT VISIT INFORMATION Patient Instructions [facility] Additional Instructions Diagnosis: Left ureteral colic Ibuprofen 600 mg every 6 hours as needed for pain with food. Flomax 0.4 mg daily. [place] one to 2 tabs every 6 hours as needed for pain. Do not drive or take Tylenol with this medication. Follow-up with urology as soon as possible. Return to the emergency department for worsening of symptoms or any medical concerns.
[2017-11-07 11:23] LABS: HEMOGLOBIN 13.8 g/dL (12.0-16.0); MEAN CELL VOLUME 88.9 fL (80-100); MEAN CORPUSCULAR HEMOGLOBIN 30.7 pg (25-34); MEAN CORPUSCULAR HGB CONC 34.5 g/dl (32-36); MEAN PLATELET VOLUME 10.1 fL (7.4-10.4); PLATELET COUNT 184 K/uL (130-400); RED CELL DISTRIBUTION WIDTH SD 38.8 fL (36.4-46.3); WHITE BLOOD COUNT 6.83 K/uL (4.8-10.8)
[2017-11-07 11:43] LABS: ALBUMIN 4.8 gm/dl (3.4-5.0); CALCIUM 9.2 mg/dl (8.5-10.1); CREATININE 1.09 mg/dl (0.60-1.20); POTASSIUM 3.5 mmol/L (3.5-5.1)
[2017-11-07 11:53] LABS: BASO % 0.1 %; BASO ABS # 0.01 K/uL (0-0.2); EOS % 0.4 %; EOS ABS # 0.03 K/uL (0-0.5); IG# 0.01 K/uL (0.00-0.02); LYMPH % 14.3 %; LYMPH ABS # 0.98 K/uL (1.2-3.4); MONO % 9.1 %; MONO ABS # 0.62 K/uL (0.11-0.59); NEUT ABS # 5.18 K/uL (1.4-6.5)
--- NOTE | 2017-11-07 12:01 | DIAGNOSTIC IMAGING REPORT ---
(RENAL)RETROPERITON COMP HISTORY: Flank pain L flank pain, kidney stone history, CT at OSH reportedly neg COMPARISON: None. FINDINGS: Right kidney: Maximum dimension 12.2 cm. No evidence for hydronephrosis. Normal corticomedullary differentiation and cortical thickness. Left kidney: Moderate left renal hydroureteronephrosis. Normal corticomedullary differentiation and cortical thickness. Bladder: No bladder wall thickening. The bilateral ureteral jets were identified. IMPRESSION: Moderate left renal hydroureteronephrosis. Right kidney is unremarkable. The above report was generated using voice recognition software. It may contain grammatical, syntax or spelling errors. Electronically signed by: Nicanor Hameed M.D. 11/07/2017 12:00 PM Dictated Date/Time: 11/07/2017 11:59 AM
--- NOTE | 2017-11-07 12:42 | DIAGNOSTIC IMAGING REPORT ---
KUB CLINICAL HISTORY: L ureteral stone nephrocalcinosis COMPARISON STUDY: Renal ultrasound same date FINDINGS: Nonobstructive bowel pattern. 3 mm calcification left ureteral vesicle junction. Trace contrast within the renal collecting system. Mild left hydroureteronephrosis. IMPRESSION: 3 mm Obstructing calculus distal left ureter at the left ureteral vesicle junction. Trace contrast within the left renal collecting system and ureter consistent with mild left hydroureteronephrosis. The above report was generated using voice recognition software. It may contain grammatical, syntax or spelling errors. Electronically signed by: Nicanor Hameed M.D. 11/07/2017 12:41 PM Dictated Date/Time: 11/07/2017 12:39 PM
[2017-11-07 13:33] VITALS: BP 109/74; PULSE 80; O2SAT 99
[2017-11-07] MEDS ORDERED: HYDROCODONE/ACETAMIN 5/325MG TAB PO STA (13:36)
[2017-11-07] MEDS ORDERED: HYDR-5688 PO (13:39)
[2017-11-07] MEDS ORDERED: TAMS0.4C38 PO (13:40)
[2017-11-07] MEDS ORDERED: NORCO 5/325MG HOME PACK PO ONE (13:45)
== END 2017-11-07 14:02 | disposition home or self-care (01) ==
LOC: C.EDB 09:30 → C.EDA 14:02
DX: N20.1 Calculus of ureter (principal); Z83.3 Family history of diabetes mellitus; Z80.9 Family history of malignant neoplasm, unspecified; Z82.49 Family history of ischemic heart disease and other diseases of the circulatory system

== ENCOUNTER → 2017-11-25 | Day surgery (SDC) | payer BC ==
[~2017-11-25] VITALS: Ht 162.6 cm; Wt 52.5 kg
[~2017-11-25] MED LIST changes: +ATROPINE SULFATE 0.1 MG/ML 5ML SYR IV PRN; +BELLADONNA/OPIUM SUPP 60 MG SUPP PR ONE; +CEFAZOLIN 2000MG IV PUSH 15 ML IV SCH; +Cysto-Conray II 17.2% 250ML BOTTLE ONE; +DEXAMETHASONE SOD INJ 4 MG/ML VIAL ONE; +DPPRI400 IM; +EpHEDrine SULFATE INJ 50 MG/ML AMP IV PRN; +FENTANYL CITRATE INJ 50 MCG/1 ML 2 ML VIAL IV PRN; +FENTANYL CITRATE INJ 50 MCG/1 ML 2 ML VIAL ONE; +HYDR-5688 PO; +KETOROLAC TROMETHAMINE 30 MG/ML VIAL ONE; +LACTATED RINGER'S 1000ML 1,000 ML IV SCH; -LEVOTAB6 PO; +LIDOCAINE HCL 2% 2 ML VIAL (20MG/ML) ONE; +MIDAZOLAM HCL 1 MG/ML 2ML VIAL ONE; +NURSING VERBAL MED ORDER ONE; +ONDANSETRON INJ 2 MG/ML 2 ML VIAL IV PRN; +ONDANSETRON INJ 2 MG/ML 2 ML VIAL ONE; +OXYC-57 PO; +PERCOCET HOME PACK PO ONE; +PHEN-775 PO; +PROPOFOL IV EMULSION 10 MG/ML 20 ML VIAL IV ONE; +TOPI1CAP PO
[2017-11-25 17:12] VITALS: BP 110/71; PULSE 93; TEMP 36.4; O2SAT 99; Ht 162.6 cm; Wt 52.5 kg
--- NOTE | 2017-11-25 18:59 | History and Physical ---
History & Physical Date Nov 25, 2017. Chief Complaint left renal colic History of Present Illness The patient is a 22 year old female with complaints of worsening left renal colic. She has a 3mm distal left ureteral stone which we were uncertain if she passed. She had episodes of left renal colic Wednesday then had a normal office ultrasound Wednesday and then had severe colic all day today. pain is LLQ and with nausea no emesis. Pain is severe 8/10 and not letting up. Past Medical/Surgical History Medical Problems: (1) Back pain (2) Infectious Mononucleosis (3) Ovarian cyst (4) Pharyngitis (5) Postoperative pain (6) Pruritic erythematous rash (7) Pruritic erythematous rash (8) Right lower quadrant abdominal pain (9) Sore throat (10) Urinary tract infection (11) Vasovagal syncope Surgical Problems: (1) Hx of tonsillectomy (2) No significant past surgical history Additional History Hepatic Disease: No Endocrine Disorder: No Kidney Disease: Yes Hypertension: No Heart Disease: No Bleeding Tendencies: No Infectious Diseases: No Allergies Coded Allergies: Sulfa Antibiotics (Verified Allergy, Intermediate, hives, 11/25/17) Home Medications Scheduled Escitalopram Oxalate (Escitalopram Oxalate), 10 MG PO DAILY Medroxyprogesterone Acetate (Depo-Provera), 1 ML IM Q3MO Topiramate (Trokendi Xr), 100 MG PO DAILY Topiramate (Trokendi Xr), 200 MG PO DAILY Scheduled PRN Hydrocodone/Acetaminophen 5MG/325MG ([place] 5MG/325MG), 1 TABLET PO Q6 PRN for Pain Lorazepam (Lorazepam), 0.25 MG PO BID PRN for Anxiety Physical Examination Skin: warm/dry Eyes: normal inspection ENT: normal ENT inspection Respiratory/Chest: lungs clear, normal breath sounds, no respiratory distress Cardiovascular: regular rate, rhythm, no edema Abdomen / GI: normal bowel sounds Extremities: normal inspection, normal range of motion Neurologic/Psych: no motor/sensory deficits, alert, oriented x 3 Diagnosis left distal ureteral stone severe colic plan left ureteroscopy laser litho basket stone extraction new right upper ureteral stone on KUB today. 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
--- NOTE | 2017-11-25 21:25 | [facility] Operative Report ---
Operative Report Operative Date Nov 25, 2017. Pre-Operative Diagnosis left ureteral stone, right ureteral stone Post-Operative Diagnosis left ureteral stone, right ureteral stone Procedure(s) Performed left ureteroscopy laser lithotripsy basket stone extraction, right ureteral stent placement Surgeon Dr. Linda Payne Bank Accountant Surgeon(s) none Estimated Blood Loss 1mL Findings faintly radio-opaque left distal stone, radio-opaque right upper ureteral s right upper ureteral stone Fluids 1000mL Specimens left ureteral stone fragments Drains 6 fr 24 centimeter double j stent right Anesthesia Type General Complication(s) none Disposition yes Recovery Room / PACU Indications left renal colic, left distal stone, right upper ureteral stone Description of Procedure Patient was given general LMA anesthesia and placed in lithotomy position. Her genitals were prepped and draped in sterile fashion. Time out held with team. I placed a 21 fr rigid cystoscope to bladder. The urethra is unremarkable. The UOs are normal. I placed a stiff wire up left ureter and it passes easily but there is a faint oval stone seen moving with the wire up the left distal ureter. I passed the wire to kidney. I passed the dual lumen to calibrate the left distal ureter. it is tight. I passed a semirigid ureteroscope up the distal ureter ot the stone. It is tight. I used the 200 micron holmium laser to fragment the stone in left distal ureter into about 8 fragments. I used a 2.4 fr zero tip basket to remove all pieces from the distal ureter. The ureteral lumen looks uninjured so I did not leave a stent on the left side. I then passed a road runner up the right ureter and it passes immediately along side the 8mm right upper ureteral stone. I placed a 24 centimeter 6 Fr double J stent easily on the right. There is brisk efflux after placement. I left bladder empty and concluded case. I placed a belladonna and opium suppository for post-op pain. SHe transferred to recovery under my escort, in stable condition. Plan: Home today Pyridium for dysuria x 3 days flomax daily oral pain meds as needed ASA 1 clean contaminated case 46 seconds fluoro ancef antibiotic superintendent nonselling I attest to the content of the Intraoperative Record and any orders documented therein. Any exceptions are noted below.
--- NOTE | 2017-11-25 21:29 | Discharge Instructions ---
Discharge Instructions Date of Service Nov 25, 2017. Admission Reason for Admission: Right Kidney Stone Discharge Discharge Diagnosis / Problem: left distal ureteral stone, right upper ureteral stone Discharge Goals Goal(s): Decrease discomfort, Improve disease control Activity Recommendations Activity Limitations: resume your previous activity Lifting Limitations: none Exercise/Sports Limitations: none May Resume Sexual Activity: when tolerated Shower/Bathe: no limitations Driving or Machine Use: resume 1 day after discharge . Instructions / Follow-Up Instructions / Follow-Up more right sided surgery in 1-2 weeks use iburprofen 600mg every 8 hours for 3 days use narcotic in addition as needed take milk of magnesia daily for 3 days take colace for 3 weeks twice daily use pyridium q 8 hrs as needed Current Hospital Diet Patient's current hospital diet: Discharge Diet Recommended Diet: Regular Diet Fluid Restriction: None Procedures Procedures Performed: left ureteroscopy laser lithotripsy basket stone extraction, right ureteral stent placement Pending Studies Studies pending at discharge: no Medical Emergencies . Who to Call and When: Medical Emergencies: If at any time you feel your situation is an emergency, please call 911 immediately. . Non-Emergent Contact Non-Emergency issues call your: Urologist Call Non-Emergent contact if: temperature is above 100.5, your pain is not controlled . . "Provider Documentation" section prepared by Linda Payne. . [place] Drug Monitoring Program Search Results: patient reviewed within database, no issues identified
--- NOTE | 2017-11-25 21:42 | Anesthesiology Progress Note ---
Anesthesia Post Op Note Date & Time Nov 25, 2017 at 21:38 Vital Signs Pain Intensity: 0 Vital Signs Past 12 Hours Date Time Temp Pulse Resp B/P (MAP) Pulse Ox O2 Delivery O2 Flow Rate FiO2 11/25/17 21:30 79 15 108/67 100 Room Air 11/25/17 21:24 37.0 90 14 107/62 100 Room Air 11/25/17 17:12 36.4 93 18 110/71 (84) 99 Room Air Notes Mental Status: alert / awake / arousable, participated in evaluation Pt Amnestic to Procedure: Yes Nausea / Vomiting: adequately controlled Pain: adequately controlled Airway Patency, RR, SpO2: stable & adequate BP & HR: stable & adequate Hydration State: stable & adequate Anesthetic Complications: no major complications apparent Pt was noted to have a red rash over her eyelids and bridge of her nose. The pt denied pain or pruritus at the sites. There was improvement in the redness over the course of minutes. Pt was otherwise asymptomatic with VSS.
--- NOTE | 2017-11-25 21:44 | DIAGNOSTIC IMAGING REPORT ---
KUB CLINICAL HISTORY: 22 years-old Female presenting with CYSTO/STENT/LASER. TECHNIQUE: 5 fluoroscopic spot image(s) obtained as part of an intraoperative procedure. COMPARISON: 11/07/2017. FINDINGS/IMPRESSION: A catheter was introduced over guidewire into the and urinary collecting systems bilaterally. Please see surgical report for further details. Fluoroscopy dosage (mGy): Not available. Fluoroscopy time: 46 seconds. Number of fluoroscopic spot images: 5. Electronically signed by: Timi Shepherd M.D. 11/25/2017 9:42 PM Dictated Date/Time: 11/25/2017 9:41 PM
[2017-11-25 22:05] VITALS: BP 109/66; PULSE 74; TEMP 37; O2SAT 99
[2017-11-25 22:45] VITALS: BP 117/74; PULSE 77; TEMP 37; O2SAT 100
== END | disposition home or self-care (01) ==
LOC: C.OR 16:43
PROVIDERS: ATTEND Urology
DX: N20.1 Calculus of ureter (principal); N23 Unspecified renal colic; F41.9 Anxiety disorder, unspecified; Z87.440 Personal history of urinary (tract) infections; Z90.89 Acquired absence of other organs; Z88.2 Allergy status to sulfonamides; Z87.442 Personal history of urinary calculi

== ENCOUNTER 2022-01-06 13:29 | Inpatient (IN) ==
[2022-01-06] MEDS ORDERED: OXYTOCIN 30 UNITS/500 ML BAG IV PRN ×2 (14:18→20:41)
--- NOTE | 2022-01-06 14:26 | History & Physical Report ---
Date of Service January 06, 2022 Assessment & Plan (1) 40 weeks gestation of : Plan: Admit for labor, routine labs, epidural as patient request, plan for AROM after Anticipate spontaneous vaginal delivery Admission and Anticipated Discharge Date Admission Date: January 06, 2022 History of Present Illness Chief Complaint: Ctx, 5cm in office Primary Care Provider: Mayank Prater Patient is a 26-year-old -0-0-1 at 40 weeks and 0 days dated by last menstrual period consistent with a 6-week ultrasound who presents to labor and delivery for ongoing contractions since 9 AM. She was in the office earlier today and was kip every 2 to 3 minutes, and was 5 cm dilated. When she presented she was 5 cm dilated, and kip every 2 to 3 minutes. Patient desires an epidural. Denies any leaking of fluid or vaginal bleeding. Notes good movement. Denies headache, blurry vision, right upper quadrant epigastric pain. Otherwise feeling well. No other complications this Allergies Allergy/AdvReac Type Severity Reaction Status Date / Time Sulfa (Sulfonamide Allergy Intermediate hives Verified 10/21/21 07:28 Antibiotics) Home Medications Medication Instructions Recorded Confirmed Type No Known Home Medications 05/07/21 05/07/21 History Vitamin 800 mg PO DAILY 10/20/21 10/20/21 History Patient History Medical History Back pain Colic, ureteral Kidney stones Left flank pain Pharyngitis Right lower quadrant abdominal pain Urinary tract infection Vasovagal syncope Surgical History History of tonsillectomy Family History Other Cancer Diabetes Hypertension Social History Smoking Status: Never smoker Second Hand Exposure: No; Hx Alcohol Use: No Hx Substance Use: No Preferred Language: Kiswahili Tear Down Man Required: No Beliefs That Will Affect Care: None marital status: Current Living Situation: Spouse Other Information That Helps Us Care for You: No Feels Safe at Home: Yes Safety Concerns: Feels Safe At This Time Assistive Devices: None OB History WELLNESS INSTRUCTOR History See H+P Review of Systems All systems reviewed & are unremarkable except as noted in HPI & below Physical Exam Constitutional: WD/WN, vitals as above Respiratory: normal respiratory effort, lungs clear to auscultation Cardiovascular: RRR, no murmur, no edema Gastrointestinal (Abdomen): normal bowel sounds, soft, nontender, no hepatosplenomegaly Genitourinary: EFW 3500g cephalic Cervix: 5 cm per RN Results & Data ([facility]) Vital Signs (Past 12 Hours) Vital Signs Pulse BP 01/06/22 13:37 100 H 118/78 Monitoring External Monitor FHT: Baseline 130, moderate variability, positive accelerations no decelerations, category 1 tracing Tocodynamometer Tocometer: Q. 2 to 3-minute
[2022-01-06 14:47] LABS: Hematocrit (blood only) 37.9 % (37-47); Hemoglobin 12.6 g/dL (12.0-16.0); Mean Corpuscular Hemoglobin 29.8 pg (25-34); Mean Corpuscular Hgb Conc 33.2 g/dL (32-36); Mean Corpuscular Volume 89.6 fL (80-100); Mean Platelet Volume 10.8 fL (7.4-10.4); Platelet Count 182 K/uL (130-400); RDW Coefficient of Variation 13.2 % (11.5-14.5); RDW Standard Deviation 42.9 fL (36.4-46.3); Red Blood Count 4.23 M/uL (4.2-5.4); White Blood Count 13.64 K/uL (4.8-10.8)
[2022-01-06] MEDS ORDERED: ePHEDrine sulfate 50 MG/ML AMP ONE (14:49)
[2022-01-06] MEDS ORDERED: fentaNYL citrate 100 MCG/2 ML VIAL ONE (14:50)
[2022-01-06] MEDS ORDERED: SODIUM CHLORIDE 0.9% INJ 10 ML VIAL ONE (14:50)
[2022-01-06] MEDS ORDERED: BUPIVACAINE 0.25% 30 ML VIAL ONE (14:50)
[2022-01-06] MEDS ORDERED: fentaNYL 2MCG/ML ROPIVACAINE 1.25MG/ML 100 ML BAG EPI ONE (14:51)
[2022-01-06] MEDS ORDERED: NALBUPHINE HCL INJ 10 MG/ML AMP IV PRN (14:56)
[2022-01-06] MEDS ORDERED: ePHEDrine sulfate 50 MG/ML AMP IV PRN (14:56)
[2022-01-06] MEDS ORDERED: ONDANSETRON INJ 2 MG/ML 2 ML VIAL IV PRN (14:56)
[2022-01-06] MEDS ORDERED: diphenhydrAMINE 50 MG/ML VIAL IV PRN (14:56)
[2022-01-06] MEDS ORDERED: NALOXONE HCL 0.4 MG/1 ML VIAL/CARP IV PRN (14:56)
[2022-01-06] MEDS ORDERED: NALOXONE HCL 1 MG in SODIUM CHLORIDE 0.9% 1000ML 1,000 ML IV PRN (14:56)
[2022-01-06] MEDS ORDERED: fentaNYL 2MCG/ML ROPIVACAINE 1.25MG/ML 100 ML BAG EPI PRN (14:56)
[2022-01-06] MEDS: LACTATED RINGER'S 1,000 ML IV PRN ×2 (15:08→18:40)
--- NOTE | 2022-01-06 15:10 | Anesthesiology Consultation ---
Date of Service January 06, 2022 Assessment & Plan Chart Review Chart Review: Patient NOT seen in Pre Admission Testing and Acceptable Risk for Labor Epidural Consults Requested none ASA ASA2 Proposed Anesthesia Anesthesia Type: Labor Epidural and CSE Risk / Benefits Reviewed With: PT / POA / Parent / Guardian, Accepts Plan and Informed Consent Obtained History Height/Weight Height: 5 ft 4 in Weight: 73.028 kg Allergies Allergy/AdvReac Type Severity Reaction Status Date / Time Sulfa (Sulfonamide Allergy Intermediate hives Verified 10/21/21 07:28 Antibiotics) Medications Home Medications Medication Instructions Recorded Confirmed Last Taken No Known Home Medications 05/07/21 05/07/21 Unknown Vitamin 800 mg PO DAILY 10/20/21 10/20/21 10/19/21 21:00 Active Medications Generic Name Dose Route Start Last Admin Trade Name Freq PRN Reason Stop Dose Admin Lactated Ringer's 1,000 mls @ 125 mls/hr 01/06/22 14:18 01/06/22 15:08 Lr IV 01/08/22 14:17 999 mls/hr .Q8H PRN Administration L&D Protocol Protocol NPO Date Last Intake of Fluids: 01/06/22 Time Last Intake of Fluids: 14:00 Date Last Intake of Solids: 01/06/22 Time Last Intake of Solids: 09:00 Past Medical History Medical History Back pain Colic, ureteral Kidney stones Left flank pain Pharyngitis Right lower quadrant abdominal pain Urinary tract infection Vasovagal syncope Exercise / Class Metabolic Activity II 4-5 Yardwork/Stairs/Walk up hill Past Family History Family History Other Cancer Diabetes Hypertension Past Surgical History Surgical History History of tonsillectomy Past Anesthesia History No Hx of Anesthesia Complications and No Family Hx of Anesthesia Complications History of PONV No Hx of PONV and No Hx of Motion Sickness Social History Smoking Status: Never smoker Hx Alcohol Use: No Hx Substance Use: No substance use type: does not use Review of Systems no chest pain or sob Physical Exam Vital Signs Last Vital Signs Pulse 88 01/06/22 15:06 BP 118/78 01/06/22 13:37 Pulse Ox 100 01/06/22 15:06 T 36.8 RR 20 ENMT Mouth: no TMJ abnormality Thyromental Distance: > or= 3.5 Finger Breadths Mallampati Class: II Neck normal visual inspection Respiratory normal respiratory effort Auscultation: lungs clear to auscultation bilaterally Cardiovascular Rate/Rhythm: regular rate and regular rhythm Musculoskeletal Spine: normal cervical ROM Neurologic moves all extremities Psychiatric Orientation: alert and oriented x 3 Testing Laboratory Results 01/06/22 14:24
--- NOTE | 2022-01-06 16:20 | Labor Progress Brief Note ---
Date of Service January 06, 2022 Subjective Patient comfortable and epidural at this time, no complaint Assessment & Plan (1) 40 weeks gestation of : Plan: Will start oxytocin if patient makes no cervical change or has hypotonic uterine contractions Anticipate spontaneous vaginal delivery Admission and Anticipated Discharge Date Admission Date: January 06, 2022 Physical Exam Physical Exam: heart tracing: Baseline 125, moderate variability, positive accelerations, no decelerations, category 1 tracing Tocometer: Contractions every 4 minutes Genitourinary: Cervix: 6/100/-1 AROM with clear fluid noted, no cords felt, no complications Results & Data ([facility]) Vital Signs (Past 12 Hours) Vital Signs Pulse BP Pulse Ox 01/06/22 16:16 79 99 01/06/22 16:14 77 93 01/06/22 16:11 86 99 01/06/22 16:07 66 114/72 01/06/22 16:06 88 99 01/06/22 16:01 87 96 01/06/22 15:56 85 98 01/06/22 15:51 90 116/73 97 01/06/22 15:46 83 97 01/06/22 15:41 84 97 01/06/22 15:37 94 H 93 01/06/22 15:36 93 H 97 01/06/22 15:35 75 115/71 01/06/22 15:31 90 96 01/06/22 15:28 87 113/75 01/06/22 15:26 90 110/69 99 01/06/22 15:24 114/70 01/06/22 15:22 86 112/68 01/06/22 15:21 87 111/64 99 01/06/22 15:16 81 100 01/06/22 15:11 96 H 100 01/06/22 15:06 88 100 01/06/22 14:59 84 99 01/06/22 14:54 76 100 01/06/22 14:49 77 100 01/06/22 13:37 100 H 118/78
[2022-01-06] MEDS ORDERED: DIPHTHERIA/TETANUS/PERTUSSIS 0.5 ML SYR/VIAL IM ONE (20:41)
[2022-01-06] MEDS ORDERED: oxyCODONE/ACETAMINOPHEN 5mg/325mg TAB PO PRN (20:41)
[2022-01-06] MEDS ORDERED: HYDROCORTISONE ACETATE 25 MG SUPP PR PRN (20:41)
[2022-01-06] MEDS ORDERED: bisacodyL 10 MG SUPP PR PRN (20:41)
[2022-01-06] MEDS ORDERED: ACETAMINOPHEN 325 MG TAB PO PRN (20:41)
[2022-01-06] MEDS ORDERED: BENZOCAINE 20% AER SPR 82.5 GM CAN EXT PRN (20:41)
--- NOTE | 2022-01-06 20:43 | Delivery Summary ---
Vaginal Delivery Summary Date of Service January 06, 2022 Vaginal Delivery Summary Delivery Note History synopsis: Patient is a 26-year-old -0-0-1 admitted at 40 weeks and 0 days for term labor as she was kip every 2 to 3 minutes and 5 cm dilated. She received an epidural for pain control, and artificial rupture of membranes was performed after epidural. She progressed from 6 cm to complete. I was called for delivery. Delivery Summary: Patient was placed in the dorsal lithotomy position. She was prepped and draped in the usual sterile fashion. Upon maternal pushing the head was delivered atraumatically followed by the anterior shoulders, posterior shoulders then the remainder of the infants body. The infants mouth and nose were bulb suction below the level of the perineum. A male infant was delivered at 2030, weight pending with APGARS of 8 at 1 minute and 9 at 5 minutes. The umbilical cord was clamped times two and cut after 1 minute of delayed cord clamping. The was handed off to the awaiting nursing staff. Cord blood gases were obtained. The placenta delivered intact with three vessel cord at 2034. Placenta was sent to pathology for hold. Thirty units of Pitocin were added to the IV fluid and allowed to run freely. Uterine massage was performed until uterus was deemed firm. Upon inspection of the perineum, vagina and cervix were intact. Upon re-inspection the patient was hemostatic. Uterus again massaged and found to be firm. Needle and sponge counts were correct. Patient was stable and allowed to recover in L&D room. was stable and remained in room with mother in the Family Care Unit.
[2022-01-06] MEDS: DOCUSATE SODIUM 100 MG CAP PO SCH (22:19)
[2022-01-07] MEDS: IBUPROFEN 600 MG TAB PO PRN ×4 (03:30→18:12)
[2022-01-07 06:10] LABS: Hematocrit (blood only) 32.2 % (37-47); Hemoglobin 10.7 g/dL (12.0-16.0); Mean Corpuscular Hemoglobin 29.2 pg (25-34); Mean Corpuscular Hgb Conc 33.2 g/dL (32-36); Mean Platelet Volume 10.9 fL (7.4-10.4); Platelet Count 170 K/uL (130-400); RDW Coefficient of Variation 13.1 % (11.5-14.5); RDW Standard Deviation 42.2 fL (36.4-46.3); Red Blood Count 3.66 M/uL (4.2-5.4); White Blood Count 15.03 K/uL (4.8-10.8)
--- NOTE | 2022-01-07 07:22 | Anesthesia Procedure Note ---
Date of Service January 07, 2022 Anesthesia Post Epidural Note Vital Signs Vital Signs: Temp Pulse Resp BP Pulse Ox 37 C 85 18 107/69 99 01/07/22 03:30 01/07/22 03:30 01/07/22 03:30 01/07/22 03:30 01/06/22 20:36 Pain Intensity Abdomen: Pain Intensity: 0 Notes Mental Status: alert / awake / arousable and participated in evaluation Nausea / Vomiting: adequately controlled Pain: adequately controlled Airway Patency, RR, SpO2: stable & adequate BP & HR: stable & adequate Hydration State: stable & adequate Neuraxial Anesthesia: was administered and sensory block is resolving Anesthetic Complications: no major complications apparent Epidural: Removed without complications and With tip intact
[2022-01-07] MEDS ORDERED: PRENATAL VITAMIN 1 TAB PO SCH (08:00)
[2022-01-07] MEDS: DOCUSATE SODIUM 100 MG CAP PO SCH ×2 (08:04→19:44)
--- NOTE | 2022-01-07 08:09 | Obstetrical Progress Note ---
Date of Service January 07, 2022 Assessment & Plan Admission and Anticipated Discharge Date Admission Date: January 06, 2022 Subjective Patient is seen and examined. She feels well, no complaints. Ambulating without dizziness Voiding without difficulty Tolerating regular diet with out N&V Bleeding is minimal No fever/ chills/ CP/ SOB/ N&V/ Leg pain Bottle feeding without problems Vital Signs Temp Pulse Pulse Resp BP BP Pulse Ox 01/07/22 03:30 37 C 85 18 107/69 01/06/22 23:00 37 C 83 18 110/68 01/06/22 22:41 86 107/64 01/06/22 22:40 36.9 C 18 01/06/22 22:26 93 H 18 106/56 L 01/06/22 22:10 99 H 108/57 L 01/06/22 21:58 99 H 16 105/61 01/06/22 21:41 89 104/64 01/06/22 21:40 18 01/06/22 21:35 74 97/63 L 01/06/22 21:33 82 157/120 H 01/06/22 21:32 82 164/120 H 01/06/22 21:26 18 01/06/22 21:11 82 106/60 01/06/22 20:55 87 106/66 01/06/22 20:50 16 01/06/22 20:40 36.9 C 85 18 106/59 L 01/06/22 20:36 77 112/60 99 01/06/22 20:31 89 75 L 01/06/22 20:29 115 H 91 01/06/22 20:26 97 H 73 L 01/06/22 20:23 117 H 93 01/06/22 20:21 84 112/65 100 01/06/22 20:18 80 89 L 01/06/22 20:16 107 H 76 L 01/06/22 20:13 106 H 93 01/06/22 20:11 95 H 99 PE: General: Alert, orientedx3, NAD Abd: soft, NT, fundus firm, below Umbilicus Perineum intact, Lochia rubra minimal Ext; NT, no edema AP: 26 yo s/p , ppd# 1 VSS Afebrile doing well Desires d/c tonight Continue routine care All questions were answered D/C home if baby will be discharged. Results & Data ([facility]) Vital Signs (Past 12 Hours) Vital Signs Temp Pulse Pulse Resp BP BP Pulse Ox 01/07/22 03:30 37 C 85 18 107/69 01/06/22 23:00 37 C 83 18 110/68 01/06/22 22:41 86 107/64 01/06/22 22:40 36.9 C 18 01/06/22 22:26 93 H 18 106/56 L 01/06/22 22:10 99 H 108/57 L 01/06/22 21:58 99 H 16 105/61 01/06/22 21:41 89 104/64 01/06/22 21:40 18 01/06/22 21:35 74 97/63 L 01/06/22 21:33 82 157/120 H 01/06/22 21:32 82 164/120 H 01/06/22 21:26 18 01/06/22 21:11 82 106/60 01/06/22 20:55 87 106/66 01/06/22 20:50 16 01/06/22 20:40 36.9 C 85 18 106/59 L 01/06/22 20:36 77 112/60 99 01/06/22 20:31 89 75 L 01/06/22 20:29 115 H 91 01/06/22 20:26 97 H 73 L 01/06/22 20:23 117 H 93 01/06/22 20:21 84 112/65 100 01/06/22 20:18 80 89 L 01/06/22 20:16 107 H 76 L 01/06/22 20:13 106 H 93 01/06/22 20:11 95 H 99
[2022-01-07] MEDS ORDERED: bisacodyL 5 MG TABEC PO SCH (20:00)
== END 2022-01-07 21:40 | disposition home or self-care (01) | DRG 807 ==
LOC: 4S1 13:29 → 4E1 22:50
DX: Z87.442 Personal history of urinary calculi; Z3A.40 40 weeks gestation of pregnancy; Z90.09 Acquired absence of other part of head and neck; Z88.2 Allergy status to sulfonamides; Z37.0 Single live birth; O80 Encounter for full-term uncomplicated delivery